=== PATIENT | female | born 1970 | race Caucasian/White ===

== ENCOUNTER 2018-05-16 18:43 | Emergency (ER) | payer OTHER ==
[~2018-05-16] VITALS: Ht 170.2 cm; Wt 81.7 kg
[2018-05-16] MEDS ORDERED: XANAX1 MG (18:59)
[2018-05-16] MEDS ORDERED: NORCO 5-325 TA1 EACH PO (19:48)
[2018-05-16] MEDS ORDERED: PREDNISONE 20 M20 MG PO (19:48)
[2018-05-16 20:10] VITALS: BP 99/68
== END 2018-05-16 20:11 | disposition home or self-care (01) ==
LOC: M.ERS 18:43
DX: G89.29 Other chronic pain (principal); M54.5 Low back pain

== ENCOUNTER 2018-06-29 10:37 | Emergency (ER) | payer OTHER ==
[~2018-06-29] VITALS: Ht 170.2 cm; Wt 87.1 kg
[~2018-06-29 10:37] MED LIST: NORCO 5-325 TA1 EACH PO; PREDNISONE 20 M20 MG PO; XANAX1 MG
[2018-06-29 10:50] VITALS: BP 140/98
[2018-06-29] MEDS ORDERED: NORCO 5-325 TA1 EACH PO (11:11)
== END 2018-06-29 11:23 | disposition home or self-care (01) ==
LOC: M.ERS 10:37
DX: G89.29 Other chronic pain (principal); M54.5 Low back pain

== ENCOUNTER 2018-10-16 08:51 | Emergency (ER) | payer OTHER ==
[~2018-10-16] VITALS: Ht 170.2 cm; Wt 81.7 kg
[2018-10-16] MEDS ORDERED: FLEXERIL PO (09:14)
[2018-10-16] MEDS ORDERED: MEDROLDOSEPACK PO (09:14)
[2018-10-16] MEDS ORDERED: NORCO 5-325 TA1 EACH PO (09:14)
[2018-10-16 09:20] VITALS: BP 152/93
== END 2018-10-16 09:21 | disposition home or self-care (01) ==
LOC: M.ERS 08:51
DX: G89.29 Other chronic pain (principal); M54.5 Low back pain

== ENCOUNTER 2019-05-19 16:02 | Emergency (ER) | payer OTHER ==
[~2019-05-19] VITALS: Ht 170.2 cm; Wt 81.7 kg
[~2019-05-19 16:02] MED LIST changes: +FLEXERIL PO; +MEDROLDOSEPACK PO
[2019-05-19] MEDS ORDERED: NOHOMEMEDICATIONS (16:15)
[2019-05-19] MEDS ORDERED: MEDROLDOSEPACK PO (16:35)
[2019-05-19] MEDS ORDERED: ZANAFLEX4 MG PO (16:35)
[2019-05-19] MEDS ORDERED: NAPROSYN500 MG PO (16:35)
[2019-05-19 17:40] VITALS: BP 151/94
== END 2019-05-19 17:30 | disposition home or self-care (01) ==
LOC: M.ERS 16:02
DX: M54.5 Low back pain (principal); G89.29 Other chronic pain

== ENCOUNTER 2019-12-07 12:56 | Emergency (ER) | payer OTHER ==
[~2019-12-07] VITALS: Ht 170.2 cm; Wt 77.1 kg
[~2019-12-07 12:56] MED LIST changes: +NAPROSYN500 MG PO; +NOHOMEMEDICATIONS; +ZANAFLEX4 MG PO
[2019-12-07 13:26] LABS: INFLUENZA A ANTIGEN Positive (Negative); INFLUENZA B ANTIGEN Negative (Negative)
[2019-12-07] MEDS ORDERED: IPRAT-ALBUT 0.5-3 ML INH (13:39)
[2019-12-07] MEDS ORDERED: PROAIR HFA8.5 GM INH (13:39)
[2019-12-07] MEDS ORDERED: MEDROLDOSEPACK PO (13:39)
[2019-12-07 13:56] VITALS: BP 141/73
== END 2019-12-07 13:56 | disposition home or self-care (01) ==
LOC: M.ERS 12:56
PROVIDERS: Personal Emergency Response Attendant
DX: J10.1 Influenza due to other identified influenza virus with other respiratory manifestations (principal)